=== PATIENT | female | born 1955 | race Caucasian/White ===

== ENCOUNTER 2021-07-20 14:21 | Inpatient (IN) | payer OTHER ==
[~2021-07-20] VITALS: Ht 162.6 cm; Wt 111.1 kg
[~2021-07-20 14:21] MED LIST: ATROPINE SULFATE 1 MG/ML VIAL ONE; DEXAMETHASONE SOD PHOS INJ 4 MG/ML SDV ONE; ETOMIDATE 2 MG/ML 10 ML INJ IV ONE; KETOROLAC TROMETHAMINE 30 MG/ML VIAL ONE; NEOSTIGMINE 1 MG/ML 10ML VIAL ONE; ONDANSETRON HCL INJ 2MG/ML 2ML 2 MG/ML VIAL ONE; POVIDONE IODINE 0.05% 0.05 % ML PO ONE; ROCURONIUM BROMIDE 10 MG/ML 5ML VIAL IV ONE; SEVOFLURANE INHAL SOLN 250 ML PEN BTL ONE
[2021-07-20] MEDS ORDERED: SODIUM CHLORIDE FLUSH 10 ML SYR INJ PRN (17:15)
[2021-07-20 17:16] LABS: BASOPHILS % 0.5 % (0.0-1.0); EOSINOPHILS # (AUTO) 0.2 (0.0-0.4); EOSINOPHILS % 2.1 % (0.0-6.0); HEMATOCRIT 42.4 % (34.2-44.1); HEMOGLOBIN 13.5 g/dL (12.0-16.0); LYMPHOCYTES # (AUTO) 1.8 (1.0-3.2); LYMPHOCYTES % 24.1 % (18.0-39.1); MEAN CORPUSCULAR HEMOGLOBIN 31.9 pg (28-32); MEAN CORPUSCULAR HGB CONC 31.8 g/dL (31-35); MEAN CORPUSCULAR VOLUME 100.2 fL (81-99); MONOCYTES # (AUTO) 0.7 (0.2-0.8); MONOCYTES % 8.7 % (4.4-11.3); NEUTROPHILS # (AUTO) 4.9 (2.1-6.9); NEUTROPHILS % 64.2 % (38.7-80.0); PLATELET COUNT 299 x10e3/uL (140-360); RED BLOOD COUNT 4.23 x10e6/uL (3.6-5.1); RED CELL DISTRIBUTION WIDTH 12.4 % (11.7-14.4)
[2021-07-20 17:21] LABS: INR 0.93; PARTIAL THROMBOPLASTIN TIME 36.3 seconds (23.8-35.5); PROTHROMBIN TIME 13.2 seconds (11.9-14.5)
[2021-07-20 17:29] LABS: ALBUMIN 3.3 g/dL (3.5-5.0); ALBUMIN/GLOBULIN RATIO 0.8 (0.8-2.0); ANION GAP 13.1 mmol/L (8-16); CALCIUM 9.1 mg/dL (8.4-10.2); CREATININE, SERUM 0.84 mg/dL (0.57-1.11); POTASSIUM 4.1 mmol/L (3.5-5.1)
[2021-07-20] MEDS: Morphine 4mg Syringe 4 MG/ML INJ IV PRN (17:41)
[2021-07-20] MEDS: SODIUM CHLORIDE 0.9% 1000ML 1,000 ML IV SCH (19:00)
[2021-07-20 19:45] VITALS: BP 144/88
[2021-07-20 19:47] VITALS: BP 144/88
[2021-07-20 20:00] VITALS: BP 144/88
[2021-07-21] VITALS (7 sets, daily range): BP systolic 130–171; BP diastolic 58–87
[2021-07-21] MEDS ORDERED: HYDRALAZINE HCL 20 MG/ML VIAL IV PRN (00:15)
[2021-07-21] MEDS ORDERED: DIPHENHYDRAMINE HCL 25 MG CAP PO PRN (00:15)
[2021-07-21] MEDS ORDERED: LIDOCAINE 4% PATCH TP PRN (00:15)
[2021-07-21] MEDS ORDERED: POTASSIUM CHLORIDE 20 MEQ TAB CR PO PRN (00:15)
[2021-07-21] MEDS: Morphine 4mg Syringe 4 MG/ML INJ IV PRN ×4 (00:15→23:20)
[2021-07-21] MEDS ORDERED: CHLORASEPTIC SPRAY 177 ML BTL MM PRN (00:15)
[2021-07-21] MEDS ORDERED: SIMETHICONE 80 MG CHEW PO PRN (00:15)
[2021-07-21] MEDS ORDERED: ACETAMINOPHEN 325 MG TAB PO PRN (00:15)
[2021-07-21] MEDS ORDERED: BENZONATATE 100 MG CAP PO PRN (00:15)
[2021-07-21] MEDS ORDERED: ALBUTEROL/IPRATROPIUM 3 ML NEB NEB PRN (00:15)
[2021-07-21] MEDS ORDERED: DEXTROSE 50% SYRINGE 50 ML IV PRN (00:15)
[2021-07-21 05:32] LABS: BASOPHILS % 0.5 % (0.0-1.0); EOSINOPHILS # (AUTO) 0.3 (0.0-0.4); EOSINOPHILS % 4.5 % (0.0-6.0); HEMATOCRIT 38.7 % (34.2-44.1); HEMOGLOBIN 12.2 g/dL (12.0-16.0); LYMPHOCYTES # (AUTO) 1.9 (1.0-3.2); LYMPHOCYTES % 29.7 % (18.0-39.1); MEAN CORPUSCULAR HEMOGLOBIN 31.9 pg (28-32); MEAN CORPUSCULAR HGB CONC 31.5 g/dL (31-35); MONOCYTES # (AUTO) 0.7 (0.2-0.8); MONOCYTES % 10.9 % (4.4-11.3); NEUTROPHILS # (AUTO) 3.4 (2.1-6.9); NEUTROPHILS % 53.9 % (38.7-80.0); PLATELET COUNT 233 x10e3/uL (140-360); RED BLOOD COUNT 3.83 x10e6/uL (3.6-5.1); RED CELL DISTRIBUTION WIDTH 12.4 % (11.7-14.4)
[2021-07-21 05:57] LABS: ANION GAP 11.7 mmol/L (8-16); CALCIUM 8.3 mg/dL (8.4-10.2); CREATININE, SERUM 0.82 mg/dL (0.57-1.11); MAGNESIUM 1.8 MG/DL (1.3-2.1); POTASSIUM 3.7 mmol/L (3.5-5.1)
[2021-07-21] MEDS: PANTOPRAZOLE SOD 40 MG TABEC PO SCH (07:30)
[2021-07-21] MEDS ORDERED: SOTALOL80 MG PO (07:48)
[2021-07-21] MEDS ORDERED: ATIVAN1 MG PO (07:48)
[2021-07-21] MEDS ORDERED: NORVASC2.5 MG PO (07:48)
[2021-07-21] MEDS ORDERED: [UNRECOGNIZED DRUG - OTHER] PO (07:48)
[2021-07-21] MEDS ORDERED: ELIQUIS5 MG PO (07:48)
[2021-07-21] MEDS ORDERED: ARIPIPRAZOLE (07:50)
[2021-07-21] MEDS ORDERED: PROZAC10 MG PO (07:50)
[2021-07-21] MEDS: OLMESARTAN 20 MG TAB PO SCH (09:00)
[2021-07-21] MEDS: AMLODIPINE BESYLATE 5 MG TAB PO SCH (09:00)
[2021-07-21] MEDS: SOTALOL HCL 80 MG TAB PO SCH ×2 (09:00→17:00)
[2021-07-21] MEDS ORDERED: ROPIVACAINE 246.25 MG, EPINEPHRINE HCL 1:1000 1ML 0.5 MG, CLONIDINE HCL 0.08 MG, KETORO... INJ ONE ×5 (10:45)
[2021-07-21] MEDS ORDERED: ROCURONIUM BROMIDE 10 MG/ML 5ML VIAL IV ONE (12:17)
[2021-07-21] MEDS ORDERED: NEOSTIGMINE 1 MG/ML 10ML VIAL ONE (12:17)
[2021-07-21] MEDS ORDERED: DEXAMETHASONE SOD PHOS INJ 4 MG/ML SDV ONE (12:17)
[2021-07-21] MEDS ORDERED: ETOMIDATE 2 MG/ML 10 ML INJ IV ONE (12:17)
[2021-07-21] MEDS ORDERED: ONDANSETRON HCL INJ 2MG/ML 2ML 2 MG/ML VIAL ONE ×2 (12:17→17:19)
[2021-07-21] MEDS ORDERED: MIDAZOLAM HCL 2 MG/2 ML VIAL ONE (12:31)
[2021-07-21] MEDS ORDERED: FENTANYL CITRATE/PF 100MCG/2 ML INJ ONE ×2 (12:31→16:30)
[2021-07-21] MEDS ORDERED: TRANEXAMIC ACID 1,000 MG/10 ML ML ONE (12:42)
[2021-07-21] MEDS ORDERED: Vancomycin IV 1,000 MG ONE (12:42)
[2021-07-21] MEDS ORDERED: SODIUM CHLORIDE 0.9% 500ML 0 ML ONE (12:42)
[2021-07-21] MEDS ORDERED: HEPARIN SOD/SOD CHLORIDE 1,000 ML ONE (12:59)
[2021-07-21] MEDS ORDERED: Vancomycin IV 1 GM VIAL ONE (14:04)
[2021-07-21] MEDS ORDERED: SODIUM CHLORIDE 0.9% 100 ML ONE (14:07)
[2021-07-21] MEDS ORDERED: HYDROMORPHONE 1MG/1ML INJ ONE (16:46)
[2021-07-21] MEDS ORDERED: Morphine 2mg Syringe 2 MG/ML SYR ONE (17:18)
[2021-07-21 18:07] LABS: BASOPHILS % 0.2 % (0.0-1.0); EOSINOPHILS % 0.1 % (0.0-6.0); HEMATOCRIT 44.7 % (34.2-44.1); LYMPHOCYTES % 6.8 % (18.0-39.1); MEAN CORPUSCULAR HEMOGLOBIN 32.2 pg (28-32); MEAN CORPUSCULAR HGB CONC 31.3 g/dL (31-35); MEAN CORPUSCULAR VOLUME 102.8 fL (81-99); MONOCYTES # (AUTO) 0.4 (0.2-0.8); MONOCYTES % 2.9 % (4.4-11.3); NEUTROPHILS # (AUTO) 12.8 (2.1-6.9); NEUTROPHILS % 89.2 % (38.7-80.0); PLATELET COUNT 277 x10e3/uL (140-360); RED BLOOD COUNT 4.35 x10e6/uL (3.6-5.1); RED CELL DISTRIBUTION WIDTH 12.6 % (11.7-14.4)
[2021-07-21 18:23] LABS: ANION GAP 15.7 mmol/L (8-16); CALCIUM 8.5 mg/dL (8.4-10.2); CREATININE, SERUM 0.94 mg/dL (0.57-1.11); POTASSIUM 4.7 mmol/L (3.5-5.1)
[2021-07-21] MEDS: SODIUM CHLORIDE 0.9% 1000ML 1,000 ML IV SCH (20:29)
[2021-07-21] MEDS: Vancomycin IV 1 GM in SODIUM CHLORIDE 0.9% 250ML 250 ML IV SCH (20:30)
[2021-07-21] MEDS: MELATONIN 5 MG TABLET PO PRN (20:33)
[2021-07-21] MEDS: HYDROCODONE/APAP 5MG-325MG TAB PO PRN (20:33)
[2021-07-21] MEDS: ONDANSETRON HCL INJ 2MG/ML 2ML 2 MG/ML VIAL IV PRN (23:20)
[2021-07-22] VITALS (7 sets, daily range): BP systolic 126–143; BP diastolic 52–82
[2021-07-22] MEDS ORDERED: ASPIRIN 81 MG ENTERIC COATED PO ONE (06:00)
[2021-07-22] MEDS: Vancomycin IV 1 GM in SODIUM CHLORIDE 0.9% 250ML 250 ML IV SCH (06:02)
[2021-07-22] MEDS: ONDANSETRON HCL INJ 2MG/ML 2ML 2 MG/ML VIAL IV PRN ×3 (06:02→19:44)
[2021-07-22] MEDS: Morphine 4mg Syringe 4 MG/ML INJ IV PRN ×5 (06:02→23:46)
[2021-07-22 07:01] LABS: BASOPHILS % 0.3 % (0.0-1.0); EOSINOPHILS % 0.2 % (0.0-6.0); HEMATOCRIT 38.8 % (34.2-44.1); HEMOGLOBIN 12.3 g/dL (12.0-16.0); LYMPHOCYTES # (AUTO) 1.5 (1.0-3.2); LYMPHOCYTES % 12.9 % (18.0-39.1); MEAN CORPUSCULAR HEMOGLOBIN 32.5 pg (28-32); MEAN CORPUSCULAR HGB CONC 31.7 g/dL (31-35); MEAN CORPUSCULAR VOLUME 102.6 fL (81-99); MONOCYTES # (AUTO) 0.7 (0.2-0.8); MONOCYTES % 6.2 % (4.4-11.3); NEUTROPHILS # (AUTO) 9.2 (2.1-6.9); NEUTROPHILS % 79.9 % (38.7-80.0); PLATELET COUNT 265 x10e3/uL (140-360); RED BLOOD COUNT 3.78 x10e6/uL (3.6-5.1); RED CELL DISTRIBUTION WIDTH 12.5 % (11.7-14.4)
[2021-07-22] MEDS: PANTOPRAZOLE SOD 40 MG TABEC PO SCH (07:30)
[2021-07-22 07:31] LABS: ANION GAP 14.4 mmol/L (8-16); CALCIUM 8.8 mg/dL (8.4-10.2); CREATININE, SERUM 0.91 mg/dL (0.57-1.11); POTASSIUM 4.4 mmol/L (3.5-5.1)
[2021-07-22] MEDS: AMLODIPINE BESYLATE 5 MG TAB PO SCH (09:00)
[2021-07-22] MEDS: OLMESARTAN 20 MG TAB PO SCH (09:00)
[2021-07-22] MEDS: SOTALOL HCL 80 MG TAB PO SCH ×2 (09:00→17:10)
[2021-07-22] MEDS: HYDROCODONE/APAP 5MG-325MG TAB PO PRN ×2 (12:25→17:30)
[2021-07-22] MEDS: SODIUM CHLORIDE 0.9% 1000ML 1,000 ML IV SCH ×2 (14:45→19:44)
[2021-07-22] MEDS ORDERED: CEPACOL SORE THROAT LOZENGES PO PRN (17:00)
[2021-07-23] VITALS (7 sets, daily range): BP systolic 101–151; BP diastolic 55–94
[2021-07-23] MEDS: SODIUM CHLORIDE 0.9% 1000ML 1,000 ML IV SCH (05:25)
[2021-07-23] MEDS: Morphine 4mg Syringe 4 MG/ML INJ IV PRN ×2 (05:25→08:59)
[2021-07-23 06:24] LABS: BASOPHILS % 0.3 % (0.0-1.0); EOSINOPHILS # (AUTO) 0.3 (0.0-0.4); EOSINOPHILS % 2.9 % (0.0-6.0); HEMATOCRIT 33.3 % (34.2-44.1); HEMOGLOBIN 10.5 g/dL (12.0-16.0); LYMPHOCYTES # (AUTO) 1.7 (1.0-3.2); LYMPHOCYTES % 18.6 % (18.0-39.1); MEAN CORPUSCULAR HEMOGLOBIN 32.6 pg (28-32); MEAN CORPUSCULAR HGB CONC 31.5 g/dL (31-35); MEAN CORPUSCULAR VOLUME 103.4 fL (81-99); MONOCYTES # (AUTO) 1.1 (0.2-0.8); MONOCYTES % 11.5 % (4.4-11.3); NEUTROPHILS # (AUTO) 6.1 (2.1-6.9); NEUTROPHILS % 66.3 % (38.7-80.0); PLATELET COUNT 176 x10e3/uL (140-360); RED BLOOD COUNT 3.22 x10e6/uL (3.6-5.1); RED CELL DISTRIBUTION WIDTH 12.8 % (11.7-14.4)
[2021-07-23 06:45] LABS: ANION GAP 11.2 mmol/L (8-16); CALCIUM 7.9 mg/dL (8.4-10.2); CREATININE, SERUM 0.9 mg/dL (0.57-1.11); POTASSIUM 4.2 mmol/L (3.5-5.1)
[2021-07-23] MEDS: PANTOPRAZOLE SOD 40 MG TABEC PO SCH (07:30)
[2021-07-23] MEDS: SOTALOL HCL 80 MG TAB PO SCH ×2 (08:58→17:00)
[2021-07-23] MEDS: AMLODIPINE BESYLATE 5 MG TAB PO SCH (08:58)
[2021-07-23] MEDS: OLMESARTAN 20 MG TAB PO SCH (08:58)
[2021-07-23] MEDS ORDERED: KETOROLAC TROMETHAMINE 30 MG/ML VIAL IV PRN (09:00)
[2021-07-23] MEDS ORDERED: FUROSEMIDE INJ 10 MG/ML 2 ML VIAL IV ONE (10:00)
[2021-07-23] MEDS: HYDROCODONE/APAP 10MG-325MG TAB PO PRN ×2 (14:46→19:45)
[2021-07-23] MEDS: ENOXAPARIN SOD INJ 40 MG/0.4 ML SYR SC SCH (17:00)
[2021-07-23] MEDS: MELATONIN 5 MG TABLET PO PRN (19:44)
[2021-07-24] VITALS (7 sets, daily range): BP systolic 103–123; BP diastolic 51–58
[2021-07-24] MEDS: KETOROLAC TROMETHAMINE 30 MG/ML VIAL IV SCH ×5 (03:39→19:00)
[2021-07-24 05:12] LABS: BASOPHILS % 0.4 % (0.0-1.0); EOSINOPHILS # (AUTO) 0.4 (0.0-0.4); EOSINOPHILS % 5.1 % (0.0-6.0); HEMATOCRIT 30.7 % (34.2-44.1); HEMOGLOBIN 9.7 g/dL (12.0-16.0); LYMPHOCYTES # (AUTO) 1.6 (1.0-3.2); LYMPHOCYTES % 19.5 % (18.0-39.1); MEAN CORPUSCULAR HEMOGLOBIN 32.3 pg (28-32); MEAN CORPUSCULAR HGB CONC 31.6 g/dL (31-35); MEAN CORPUSCULAR VOLUME 102.3 fL (81-99); MONOCYTES # (AUTO) 0.8 (0.2-0.8); MONOCYTES % 10.2 % (4.4-11.3); NEUTROPHILS # (AUTO) 5.3 (2.1-6.9); NEUTROPHILS % 64.3 % (38.7-80.0); PLATELET COUNT 150 x10e3/uL (140-360); RED CELL DISTRIBUTION WIDTH 12.8 % (11.7-14.4)
[2021-07-24 05:38] LABS: CALCIUM 8.1 mg/dL (8.4-10.2); CREATININE, SERUM 1.05 mg/dL (0.57-1.11)
[2021-07-24] MEDS: PANTOPRAZOLE SOD 40 MG TABEC PO SCH (07:30)
[2021-07-24] MEDS: SOTALOL HCL 80 MG TAB PO SCH ×2 (08:51→16:56)
[2021-07-24] MEDS: OLMESARTAN 20 MG TAB PO SCH (08:51)
[2021-07-24] MEDS: DOCUSATE SODIUM 100 MG CAP PO PRN (09:05)
[2021-07-24] MEDS: HYDROCODONE/APAP 10MG-325MG TAB PO PRN ×2 (09:07→16:57)
[2021-07-24] MEDS ORDERED: ONDANSETRON HCL 4 MG ORAL DISINTEGRATING TAB PO PRN (12:30)
[2021-07-24] MEDS: ENOXAPARIN SOD INJ 40 MG/0.4 ML SYR SC SCH (16:56)
[2021-07-25] VITALS: BP 112/46
[2021-07-25] MEDS: KETOROLAC TROMETHAMINE 30 MG/ML VIAL IV SCH (00:30)
[2021-07-25] MEDS: HYDROCODONE/APAP 10MG-325MG TAB PO PRN ×2 (01:48→08:00)
[2021-07-25 04:00] VITALS: BP 128/65
[2021-07-25 05:31] LABS: BASOPHILS % 0.5 % (0.0-1.0); EOSINOPHILS # (AUTO) 0.4 (0.0-0.4); HEMATOCRIT 33.6 % (34.2-44.1); HEMOGLOBIN 10.9 g/dL (12.0-16.0); LYMPHOCYTES # (AUTO) 1.7 (1.0-3.2); LYMPHOCYTES % 18.9 % (18.0-39.1); MEAN CORPUSCULAR HEMOGLOBIN 32.2 pg (28-32); MEAN CORPUSCULAR HGB CONC 32.4 g/dL (31-35); MEAN CORPUSCULAR VOLUME 99.1 fL (81-99); MONOCYTES # (AUTO) 0.7 (0.2-0.8); MONOCYTES % 8.1 % (4.4-11.3); NEUTROPHILS # (AUTO) 5.9 (2.1-6.9); NEUTROPHILS % 66.8 % (38.7-80.0); PLATELET COUNT 184 x10e3/uL (140-360); RED BLOOD COUNT 3.39 x10e6/uL (3.6-5.1); RED CELL DISTRIBUTION WIDTH 12.6 % (11.7-14.4)
[2021-07-25 06:02] LABS: ANION GAP 13.2 mmol/L (8-16); CALCIUM 8.8 mg/dL (8.4-10.2); CREATININE, SERUM 0.9 mg/dL (0.57-1.11); POTASSIUM 4.2 mmol/L (3.5-5.1)
[2021-07-25] MEDS: PANTOPRAZOLE SOD 40 MG TABEC PO SCH (07:58)
[2021-07-25] MEDS: OLMESARTAN 20 MG TAB PO SCH (07:59)
[2021-07-25] MEDS: SOTALOL HCL 80 MG TAB PO SCH (07:59)
[2021-07-25 08:00] VITALS: BP 122/59
[2021-07-25 08:34] VITALS: BP 122/59
[2021-07-25] MEDS ORDERED: FUROSEMIDE INJ 10 MG/ML 4 ML VIAL IV ONE (09:30)
[2021-07-25] MEDS ORDERED: APIXABAN 5 MG TABLET PO SCH (09:30)
[2021-07-25] MEDS: DOCUSATE SODIUM 100 MG CAP PO PRN (10:34)
[2021-07-25 11:50] VITALS: BP 116/69
== END 2021-07-25 14:30 | disposition home or self-care (01) | DRG 483 ==
LOC: ER 14:39 → ERHOLD 17:15 → MED/SURG 20:43
PROVIDERS: ADMIT Internal Medicine; ATTEND Internal Medicine
PROC: 0LS30ZZ Reposition Right Upper Arm Tendon, Open Approach (ICD-10-PCS; 2021-07-21)
PROC: 0RRJ00Z Replacement of Right Shoulder Joint with Reverse Ball and Socket Synthetic Substitute, Open Approach (ICD-10-PCS; principal; 2021-07-21 10:30)
DX: S42.251A Displaced fracture of greater tuberosity of right humerus, initial encounter for closed fracture (principal); J98.11 Atelectasis; Z68.41 Body mass index [BMI] 40.0-44.9, adult; E66.01 Morbid (severe) obesity due to excess calories; I10 Essential (primary) hypertension; I48.0 Paroxysmal atrial fibrillation; Z79.01 Long term (current) use of anticoagulants; F41.9 Anxiety disorder, unspecified; Z87.440 Personal history of urinary (tract) infections; R50.82 Postprocedural fever; I35.0 Nonrheumatic aortic (valve) stenosis; Z20.822 Contact with and (suspected) exposure to COVID-19
CPT/HCPCS: 36415; 71046; 76000; 80048; 80053; 82948; 83735; 85025; 85610; 85730; 86850; 86900; 93005; 93306; 94799; 97139; 99284; C1713; C1776; J0171; J0461; J1100; J1170; J1650; J1885; J1940; J2250; J2270; J2405; J2710; J2795; J3010; J3370; J7030; J7040; J7050; U0002